=== PATIENT | male | born 1985 | race Caucasian/White ===

== ENCOUNTER 2020-06-29 23:56 | Emergency (ER) | payer OTHER ==
[~2020-06-29] VITALS: Ht 195.6 cm; Wt 131.5 kg
== END 2020-06-30 01:09 | disposition home or self-care (01) ==
LOC: ER 23:56
DX: G47.00 Insomnia, unspecified (principal); Z87.891 Personal history of nicotine dependence; Z71.89 Other specified counseling
CPT/HCPCS: 96361; 96374; 96375; 99283-25

== ENCOUNTER 2020-07-01 08:52 | Emergency (ER) | payer OTHER ==
[~2020-07-01] VITALS: Ht 195.6 cm; Wt 127.0 kg
[2020-07-01 09:22] LABS: Appearance, Urine Clear (Clear); Blood, Urine 1+ (Neg); Color, Urine Yellow (P-Yellow); Glucose Qualitative, Urine Neg (Neg); Ketones, Urine 4+ (Neg); Leukocyte Esterase, Urine 1+ (Neg); Nitrite, Urine Neg (Neg); Protein, Urine 3+ (Neg); Source, Urine Clean Catch; Specific Gravity, Urine 1.025 (1.003-1.022); Urobilinogen, Urine 2+ (Normal)
[2020-07-01 09:39] LABS: Bilirubin, Urine 2+ (Neg)
[2020-07-01 09:40] LABS: Bacteria Few /hpf; Mucus Mod (0-Heavy); Red Blood Cells, Urine 0-2 /hpf (0-2); Squamous Epithelial Cells Rare /hpf (Few)
== END 2020-07-01 11:15 | disposition home or self-care (01) ==
LOC: ER 08:52
PROVIDERS: Physician Assistant
DX: R10.84 Generalized abdominal pain (principal); R11.2 Nausea with vomiting, unspecified; I10 Essential (primary) hypertension; Z87.891 Personal history of nicotine dependence
CPT/HCPCS: 81001; 87086; 96374; 99284-25; A9270; J2405